=== PATIENT | female | born 1985 | race Caucasian/White ===

== ENCOUNTER 2021-05-20 10:13 | Emergency (ER) | payer BC ==
[~2021-05-20] VITALS: Ht 170.2 cm; Wt 104.3 kg
[2021-05-20 10:54] LABS: ABSOLUTE NEUTROPHILS 8.4 thou/uL (1.4-8.2); BASOPHILS 0.4 % (0.0-2.0); EOSINOPHILS 1.5 % (0.0-3.0); HEMATOCRIT 42.3 % (37.0-47.0); LYMPHOCYTES 18.6 % (24.0-44.0); MCH 29.3 pg (26.0-34.0); MCV 88.7 fL (80.0-100.0); MONOCYTES 4.1 % (1.0-8.0); PLATELET COUNT 244 thou/uL (150-400); POLYS 75.4 % (36.0-66.0); RBC 4.77 mil/uL (4.20-5.00); RDW 13.5 % (10.5-14.5); WBC 11.1 thou/uL (4.0-11.0)
[2021-05-20 11:09] LABS: CALCIUM 8.8 mg/dL (8.5-10.1); CREATININE 0.8 mg/dL (0.6-1.0)
[2021-05-20] MEDS ORDERED: APAP W/CODEINE1 TA2 PO (12:24)
[2021-05-20 12:25] VITALS: BP 99/56
== END 2021-05-20 12:25 | disposition home or self-care (01) ==
LOC: ER 10:13
PROVIDERS: Emergency Medicine
DX: N83.202 Unspecified ovarian cyst, left side (principal); R10.84 Generalized abdominal pain; Z90.89 Acquired absence of other organs; Z90.710 Acquired absence of both cervix and uterus